=== PATIENT | male | born 1975 | race Hispanic/Latino ===

== ENCOUNTER 2019-03-30 13:54 | Emergency (ER) | payer OTHER, SELFPAY ==
--- NOTE | 2019-03-30 15:03 | ER ---
Nurse's Notes [facility] Name: Antione Velasco Age: 44 yrs Sex: Male : 1975 Arrival Date: 03/30/2019 Time: 14:08 Bed 9 Private MD: Diagnosis: Gout Presentation: 03/30 14:13 Presenting complaint: Patient states: right elbow swelling started Saturday; went to [facility] ER and sent home with scripts but pain has not subsided. Transition of care: patient was not received from another setting of care. Onset of symptoms was March 28, 2019. Risk Assessment: Do you want to hurt yourself or someone else? Patient reports no desire to harm self or others. Care prior to arrival: None. 14:13 Method Of Arrival: Ambulatory 14:13 Acuity: YASMEEN 4 14:15 Initial Sepsis Screen: Does the patient meet any 2 criteria? No. Patient's initial iw sepsis screen is negative. Does the patient have a suspected source of infection? No. Patient's initial sepsis screen is negative. Triage Assessment: 14:15 General: Appears in no apparent distress. uncomfortable, Behavior is calm, cooperative, sv appropriate for age. Pain: Complains of pain in right elbow. Neuro: Level of Consciousness is awake, alert, obeys commands, Gait is steady. Respiratory: Respiratory effort is even, unlabored. Historical: - Allergies: 14:14 No Known Allergies; sv - PMHx: 14:14 Gout; sv - Immunization history:: Adult Immunizations unknown. - Social history:: Smoking status: unknown. - Ebola Screening: : Patient negative for fever greater than or equal to 101.5 degrees Fahrenheit, and additional compatible Ebola Virus Disease symptoms Patient denies exposure to infectious person Patient denies travel to an Ebola-affected area in the 21 days before illness onset No symptoms or risks identified at this time. Screenin:38 Abuse screen: Denies threats or abuse. Denies injuries from another. Nutritional iw screening: No deficits noted. Tuberculosis screening: No symptoms or risk factors identified. Fall Risk None identified. Assessment: 15:00 General: Appears in no apparent distress. Behavior is calm, cooperative. Pain: iw Complains of pain in right elbow. Neuro: Level of Consciousness is awake, alert, obeys commands, Oriented to person, place, time, situation, Moves all extremities. Cardiovascular: Patient's skin is warm and dry. Respiratory: Respiratory effort is even, unlabored, Respiratory pattern is regular. Derm: Skin is intact, is healthy with good turgor. Musculoskeletal: Swelling present in right elbow. Vital Signs: 14:14 BP 128 / 86; Pulse 85; Resp 16; Temp 98.1; Pulse Ox 98% ; Weight 83.91 kg; Height 5 ft. sv 4 in. (162.56 cm); 14:14 Body Mass Index 31.75 (83.91 kg, 162.56 cm) sv ED Course: 14:08 Patient arrived in ED. mr 14:14 Triage completed. sv 14:14 Arm band placed on. sv 14:31 Yoli Blank, RN is Primary Nurse. iw 14:38 Henry Blackburn PA is PHCP. jr8 14:39 Marcelino Butler MD is Attending Physician. jr8 15:00 Patient has correct armband on for positive identification. iw 15:38 No provider procedures requiring assistance completed. Patient did not have IV access iw during this emergency room visit. Administered Medications: 15:39 Drug: Indomethacin 50 mg Route: PO; jr8 Outcome: 15:03 Discharge ordered by . jr8 15:38 Discharged to home ambulatory. iw 15:38 Condition: good 15:38 Discharge instructions given to patient, Instructed on discharge instructions, follow up and referral plans. Demonstrated understanding of instructions, follow-up care, medications, Prescriptions given X 2. 15:39 Patient left the ED. jr8 Signatures: Chacha Mccabe RN RN Shanae López mr Yoli Blank RN RN Henry Blackburn PA PA jr8
--- NOTE | 2019-03-30 15:03 | EDPHYS ---
Physician Documentation [facility] Name: Antione Velasco Age: 44 yrs Sex: Male : 1975 Arrival Date: 03/30/2019 Time: 14:08 Bed 9 Private MD: ED Physician Marcelino Butler HPI: 03/30 14:59 This 44 yrs old Male presents to ER via Ambulatory with complaints of Elbow jr8 Swelling. 14:59 Onset: The symptoms/episode began/occurred 1 week(s) ago. Associated signs and jr8 symptoms: Pertinent negatives: fever. Pt seen at [facility] ED and DX with gout, given three colcrys but pain is not better.. Historical: - Allergies: 14:14 No Known Allergies; sv - PMHx: 14:14 Gout; sv - Immunization history:: Adult Immunizations unknown. - Social history:: Smoking status: unknown. - Ebola Screening: : Patient negative for fever greater than or equal to 101.5 degrees Fahrenheit, and additional compatible Ebola Virus Disease symptoms Patient denies exposure to infectious person Patient denies travel to an Ebola-affected area in the 21 days before illness onset No symptoms or risks identified at this time. ROS: 15:00 Constitutional: Negative for fever, chills, and weight loss, Eyes: Negative for injury, jr8 pain, redness, and discharge, ENT: Negative for injury, pain, and discharge, Neck: Negative for injury, pain, and swelling, Cardiovascular: Negative for chest pain, palpitations, and edema, Respiratory: Negative for shortness of breath, cough, wheezing, and pleuritic chest pain, Abdomen/GI: Negative for abdominal pain, nausea, vomiting, diarrhea, and constipation, Back: Negative for injury and pain. 15:00 MS/extremity: Positive for pain, warmth, of the right elbow. Exam: 15:00 Constitutional: This is a well developed, well nourished patient who is awake, alert, jr8 and in no acute distress. Head/Face: Normocephalic, atraumatic. Eyes: Pupils equal round and reactive to light, extra-ocular motions intact. Lids and lashes normal. Conjunctiva and sclera are non-icteric and not injected. Cornea within normal limits. Periorbital areas with no swelling, redness, or edema. ENT: Nares patent. No nasal discharge, no septal abnormalities noted. Tympanic membranes are normal and external auditory canals are clear. Oropharynx with no redness, swelling, or masses, exudates, or evidence of obstruction, uvula midline. Mucous membranes moist. Neck: Trachea midline, no thyromegaly or masses palpated, and no cervical lymphadenopathy. Supple, full range of motion without nuchal rigidity, or vertebral point tenderness. No Meningismus. Chest/axilla: Normal chest wall appearance and motion. Nontender with no deformity. No lesions are appreciated. Cardiovascular: Regular rate and rhythm with a normal S1 and S2. No gallops, murmurs, or rubs. Normal PMI, no JVD. No pulse deficits. Respiratory: Lungs have equal breath sounds bilaterally, clear to auscultation and percussion. No rales, rhonchi or wheezes noted. No increased work of breathing, no retractions or nasal flaring. Abdomen/GI: Soft, non-tender, with normal bowel sounds. No distension or tympany. No guarding or rebound. No evidence of tenderness throughout. 15:00 Musculoskeletal/extremity: ROM: intact in all extremities, Joints: the right elbow displays painful range of motion, swelling, redness, warmth. Vital Signs: 14:14 BP 128 / 86; Pulse 85; Resp 16; Temp 98.1; Pulse Ox 98% ; Weight 83.91 kg; Height 5 ft. sv 4 in. (162.56 cm); 14:14 Body Mass Index 31.75 (83.91 kg, 162.56 cm) sv MDM: 14:39 Patient medically screened. jr8 15:01 Data reviewed: vital signs, nurses notes, and as a result, I will discharge patient. jr8 Data interpreted: Pulse oximetry: on room air is 98 %. Interpretation: normal. Counseling: I had a detailed discussion with the patient and/or guardian regarding: the historical points, exam findings, and any diagnostic results supporting the discharge/admit diagnosis, the need for outpatient follow up, a family practitioner. Administered Medications: 15:39 Drug: Indomethacin 50 mg Route: PO; jr8 Disposition: 16:23 Co-signature as Attending Physician, Marcelino Butler MD I agree with the assessment and kdr plan of care. Disposition: 03/30/19 15:03 Discharged to Home. Impression: Gout. - Condition is Stable. - Discharge Instructions: Gout. - Prescriptions for indomethacin 50 mg Oral capsule - take 1 capsule by ORAL route 3 times per day with food as needed; 15 capsule. Medrol (Renzo) 4 mg Oral Tablets, Dose Pack - take 1 tablet by ORAL route as directed - follow package instructions; 1 packet. - Work release form, Medication Reconciliation Form, Thank You Letter form. - Follow up: Private Physician; When: As needed; Reason: Recheck today's complaints, Re-evaluation by your physician. - Problem is chronic. - Symptoms have worsened. Signatures: Chacha Mccabe RN RN sv Marcelino Butler MD MD kdr Yoli Blank RN RN iw Henry Blackburn PA PA jr8 Corrections: (The following items were deleted from the chart) 15:39 15:03 03/30/2019 15:03 Discharged to Home. Impression: Gout. Condition is Stable. Forms jr8 are Medication Reconciliation Form, Thank You Letter, Antibiotic Education, Prescription Opioid Use. Follow up: Private Physician; When: As needed; Reason: Recheck today's complaints, Re-evaluation by your physician. Problem is chronic. Symptoms have worsened. jr8
[2019-03-30] MEDS ORDERED: INDOMETHACIN 25 MG CAP PO ONE (16:00)
== END 2019-03-30 15:39 | disposition home or self-care (01) ==
LOC: ER 13:54
DX: M10.9 Gout, unspecified (principal)
CPT/HCPCS: 99283